=== PATIENT | male | born 1975 | race Two or more races ===

== ENCOUNTER 2021-08-29 22:59 | Emergency (ER) | payer MEDICAID, OTHER ==
[~2021-08-29] VITALS: Ht 152.4 cm; Wt 81.6 kg
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
[2021-08-29] MEDS ORDERED: TDAP [DIPH/PERTUSSIS/TET] 0.5 ML VIAL IM ONE ×2 (23:10→23:30)
--- NOTE | 2021-08-29 23:10 | NUR ---
EMT AT BEDSIDE FOR WOUND CARE
[2021-08-29] MEDS ORDERED: LIDOCAINE /MPF 1% VIAL 5 ML VIAL ONE (23:31)
--- NOTE | 2021-08-30 00:17 | NUR ---
Patient discharged to home in stable condition. Written and verbal after care instructions given. Patient verbalizes understanding of instruction. Pt ambulatory with a steady gait
[2021-08-30 00:18] VITALS: BP 125/75
== END 2021-08-30 00:18 | disposition home or self-care (01) ==
LOC: ER 23:12
DX: S01.91XA Laceration without foreign body of unspecified part of head, initial encounter (principal); Y04.8XXA Assault by other bodily force, initial encounter; Y93.89 Activity, other specified; Y92.89 Other specified places as the place of occurrence of the external cause; Y99.8 Other external cause status
CPT/HCPCS: 12001; 90471; 90715; 99283; J3490